=== PATIENT | male | born 1960 | race Caucasian/White ===

== ENCOUNTER 2021-06-02 08:59 | Inpatient (IN) ==
[2021-05-28 15:45] LABS: Basophils # (Auto) 0.05 K/mcL (0.00-0.30); Eosinophils # (Auto) 0 K/mcL (0.00-0.70); Eosinophils % (Auto) 0 % (0.0-7.0); Hematocrit 40.4 % (40.1-51.0); Hemoglobin 11.2 g/dL (13.7-17.5); Lymphocytes # (Auto) 0.75 K/mcL (1.50-4.80); Lymphocytes % (Auto) 15.6 % (15.5-49.0); Mean Cell Volume 81.5 fL (80.0-100.0); Mean Corpuscular HGB Conc 27.7 g/dL (31.0-36.0); Mean Platelet Volume 9.6 fL (7.4-10.4); Monocytes # (Auto) 0.61 K/mcL (0.10-0.90); Monocytes % (Auto) 12.7 % (1.0-12.0); Neutrophils % (Auto) 70.7 % (38.0-78.0); Platelet Count 189 K/mcL (140-440); RBC 4.96 M/mcL (4.63-6.08); WBC 4.8 K/mcL (4.5-11.0)
[2021-05-28 15:58] LABS: Blood Urea Nitrogen 6 mg/dL (8-23); Calcium 9.3 mg/dL (8.6-10.4); Carbon Dioxide 22 mmol/L (22-30); Chloride 103 mmol/L (96-108); Glomerular Filtration Rate 96; Glucose 97 mg/dL (70-105)
--- NOTE | 2021-05-29 09:58 | EKG ---
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 Measurements Intervals [place] Rate: 78 P: 68 WV: 171 QRS: 13 QRSD: 88 T: 24 QT: 367 QTc: 419 Interpretive Statements Sinus rhythm Electronically Signed On 05-29-2021 9:58:06 PST by Santos Duenas M.D. /store/[email or web address]/[id number]
[~2021-06-02 08:59] MED LIST: ceFAZolin 2 GM in DEXTROSE 5% IN WATER 50 ML IV SCH
[2021-06-02] MEDS ORDERED: IPRATROPIUM/ALBUTEROL 3 ML AMPUL.NEB NEB PRN ×2 (09:00→11:09)
[2021-06-02] MEDS ORDERED: SCOPOLAMINE 1 PATCH PATCH TOPICAL PRN (09:00)
[2021-06-02] MEDS ORDERED: SUGAMMADEX SODIUM 200 MG/2 ML VIAL IV ONE (10:19)
[2021-06-02] MEDS ORDERED: DEXAMETHASONE 10 MG/ML VIAL ONE (10:19)
[2021-06-02] MEDS ORDERED: PROPOFOL 200 MG/20 ML VIAL IV ONE (10:19)
[2021-06-02] MEDS ORDERED: LIDOCAINE HCL/PF 100 MG/5 ML SYRINGE IV ONE (10:19)
[2021-06-02] MEDS ORDERED: ROPIVACAINE HCL/PF 20 ML VIAL IJ ONE (10:19)
[2021-06-02] MEDS ORDERED: MAGNESIUM SULFATE 2 GM/50 ML BAG IV ONE (10:19)
[2021-06-02] MEDS ORDERED: ONDANSETRON 4 MG/2 ML VIAL ONE (10:19)
[2021-06-02] MEDS ORDERED: HYDROmorphone 1 MG/ML SYRINGE ONE (10:19)
[2021-06-02] MEDS ORDERED: ROCURONIUM 10 MG/ML ML IV ONE (10:19)
[2021-06-02] MEDS ORDERED: KETAMINE 50 MG/ML Syringe (ANEST) IV ONE (10:19)
[2021-06-02] MEDS ORDERED: KETOROLAC 30 MG/ML VIAL IV PRN (11:09)
[2021-06-02] MEDS ORDERED: ACETAMINOPHEN 1,000 MG/100 ML BAG IV ONE (11:09)
[2021-06-02] MEDS ORDERED: MEPERIDINE 25 MG/ML VIAL IV PRN (11:09)
[2021-06-02] MEDS ORDERED: PROMETHAZINE 25 MG/ML VIAL IV PRN (11:09)
[2021-06-02] MEDS ORDERED: NALOXONE HCL 0.4 MG/ML VIAL IV PRN (11:09)
[2021-06-02] MEDS ORDERED: METHOCARBAMOL 1,000 MG/10 ML VIAL IV PRN (11:09)
[2021-06-02] MEDS ORDERED: fentaNYL 100 MCG/2 ML VIAL IV PRN (11:09)
[2021-06-02] MEDS ORDERED: ONDANSETRON 4 MG/2 ML VIAL IV PRN ×2 (11:09→11:29)
[2021-06-02] MEDS ORDERED: diphenhydrAMINE 50 MG/ML VIAL IV PRN (11:09)
[2021-06-02] MEDS ORDERED: LACTATED RINGERS 250 ML IV PRN (11:09)
[2021-06-02] MEDS ORDERED: LACTATED RINGERS 1,000 ML IV SCH (11:15)
[2021-06-02] MEDS ORDERED: HYDROmorphone 1 MG/ML SYRINGE IV PRN (11:29)
--- NOTE | 2021-06-02 11:29 | Operative Note ---
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 The patient was taken main operating and placed supine on the operative table. General anesthesia was induced over endotracheal tube. Patient's prepped and draped in standard sterile fashion. Surgical timeout was taken to verify patient and procedure being performed. Both a NG tube and a Lassiter catheter were placed prior to prep. A upper midline incision was made carried down through skin and subcutaneous tissue. The fascia was opened and the abdominal cavity was entered under direct vision. Abdominal expiration was undertaken and a greater curve tumor was identified. The lesser sac was entered and the omentum was removed from the greater curve of the stomach with LigaSure device. Once adequate margins were opened around the mass and both anterior and posterior area of the stomach was identified. The NG tube was palpated in the stomach and the tumor was removed using HOWARD staple loads to fully excise the tumor. It was then passed off the field for surgical pathology. The staple line was inspected for hemostasis. The NG tube was passed the area of resection into the distal stomach, the stomach was not narrowed and there was a good lumen throughout. The staple line was then oversewn with interrupted 3-0 Vicryl sutures it was once again inspected and found To be Hemostatic. The NG tube was once again in the stomach with with adequate gastric lumen. The rest of the abdominal cavity was inspected, the bowels were returned to their anatomical position. The midline fascial defect was closed with a running looped PDS suture and subcutaneous tissue was closed with a running 4 Monocryl suture. Skin glue dressings were applied. Patient was then awakened from anesthesia transported postanesthesia care unit awake alert in good condition.
[2021-06-02] MEDS: 0.9 % SODIUM CHLORIDE 10 ML SYRINGE IV SCH ×2 (13:06→21:55)
[2021-06-02] MEDS: LACTATED RINGERS 1,000 ML IV SCH ×2 (13:06→21:26)
[2021-06-03] MEDS: 0.9 % SODIUM CHLORIDE 10 ML SYRINGE IV SCH ×3 (05:12→22:20)
[2021-06-03] MEDS: LACTATED RINGERS 1,000 ML IV SCH ×2 (08:25→18:46)
--- NOTE | 2021-06-03 12:44 | General Surgery Progress Note ---
SUBJECTIVE Subjective Patient information: Note initiated : 06/03/21 at 12:43 pm Service Date, if different from initiated Date: [] Patient: Long Long 60 y/o M admitted on 06/02/21 for Laparoscopic Partial Gastrectomy. Chief Complaint: [] Principal diagnosis: Status post partial gastrectomy Interval history: Postop day #1 status post open partial gastrectomy. Patient is doing well with minimal complaints. Constitutional Vitals: Vital Signs Temp Pulse Resp BP Pulse Ox 98.8 F 89 18 170/82 100 06/03/21 08:00 06/03/21 08:00 06/03/21 08:00 06/03/21 08:00 06/03/21 08:00 Period Temp Pulse Resp BP Sys/Dixon Pulse Ox Last 24 Hr 96.8 F-99.1 F 75-89 16-18 151-177/79-93 99-100 Intake and Output 06/02/21 06/03/21 06/03/21 21:59 05:59 13:59 Intake Total 100 0 1000 Output Total 900 850 Balance -800 -850 1000 Weight 218 lb 12.8 oz Intake & Output: Intake & Output 06/02/21 06/03/21 06/03/21 21:59 05:59 13:59 Intake Total 100 0 1000 Output Total 900 850 Balance -800 -850 1000 Weight 218 lb 12.8 oz Intake: IV 100 1000 Lactated Ringers 1,000 ml @ 100 1000 mls/hr IV .Q10H [facility] Rx#: [id number] Oral 0 Tube Feeding 0 0 Output: Gastric Drainage 100 350 NG/OG 100 350 Void Amount 800 500 Other: Urine Appearance Clear Clear Urine Color Pale Dark Yellow Urine Odor Normal General appearance: cooperative and no acute distress GI/Abdominal GI/Abdominal exam: Present soft; Absent distended or tenderness Additional comments: Incision is clean dry and intact A/P Narrative A/P Narrative: Postop day #1 doing well. DC NG tube, clear liquid diet. Time Spent With Patient Time: Total time spent is greater than 50% in coordination of care (as documented) at patient's floor/unit and/or counseling patient:
[2021-06-03] MEDS ORDERED: ROPIVACAINE HCL/PF 20 ML VIAL IJ ONE (14:00)
[2021-06-03] MEDS ORDERED: MAGNESIUM SULFATE 2 GM/50 ML BAG IV ONE (14:00)
--- NOTE | 2021-06-03 14:23 | Procedure Note ---
Procedures - Nerve Block Nerve Block 2 Date of Procedure: 06/03/21 Procedure: Ultrasound guided Needle Gauge Used: 19 (Catheter in place) Injectate: Ropivicaine 0.5% Volume (ml): 20 (with Mag Sulfate 250mg (6ml) bilat) Side: left, right Nerve blocks: other (Bilateral rectus shealth (subcostal TAP)) Procedure successful: Yes (Good onset) Patient tolerated procedure: well Ultrasound Guided Nerve Procedure: Local anesthetic: Spread visualized Additional comments: POD 1. Patient resting comfortably in bed. Rates pain at 0/10 while at rest. Patient does complain of crampy, spasm like pain in abdomen that is occurring more frequently. Bilat catheter sites inspected. Dressings intact, catheters remain in proper position, no erythema or drainage noted. Bilat catheters re- dosed with 0.5% Ropivicaine with Mag Sulfate 250mg, local anesthetic spread visualized and confirmed with US during injection. Patient notes an almost immediate onset of pain relief. Catheters left in place, will plan on re-dosing POD 2. Will order prn Robaxin for spasm.
[2021-06-03] MEDS ORDERED: METHOCARBAMOL 1,000 MG/10 ML VIAL IV PRN (14:35)
[2021-06-04] MEDS: HYDROcodone/APAP 7.5MG/15ML 15 ML UDC PO PRN ×3 (04:38→21:18)
[2021-06-04] MEDS: 0.9 % SODIUM CHLORIDE 10 ML SYRINGE IV SCH ×3 (04:41→21:18)
[2021-06-04] MEDS: LACTATED RINGERS 1,000 ML IV SCH (05:03)
[2021-06-04 07:06] LABS: Basophils # (Auto) 0.04 K/mcL (0.00-0.30); Basophils % (Auto) 0.6 % (0.0-2.0); Eosinophils # (Auto) 0.46 K/mcL (0.00-0.70); Eosinophils % (Auto) 6.9 % (0.0-7.0); Hematocrit 34.1 % (40.1-51.0); Hemoglobin 9.5 g/dL (13.7-17.5); Lymphocytes # (Auto) 0.86 K/mcL (1.50-4.80); Lymphocytes % (Auto) 12.9 % (15.5-49.0); Mean Cell Volume 81.6 fL (80.0-100.0); Mean Corpuscular HGB Conc 27.9 g/dL (31.0-36.0); Mean Platelet Volume 10.5 fL (7.4-10.4); Monocytes # (Auto) 0.87 K/mcL (0.10-0.90); Neutrophils % (Auto) 66.6 % (38.0-78.0); Platelet Count 137 K/mcL (140-440); RBC 4.18 M/mcL (4.63-6.08); Red Cell Distribution Width 18.9 % (11.5-14.5); WBC 6.7 K/mcL (4.5-11.0)
[2021-06-04 07:35] LABS: Blood Urea Nitrogen 8 mg/dL (8-23); Calcium 8.5 mg/dL (8.6-10.4); Carbon Dioxide 21 mmol/L (22-30); Chloride 99 mmol/L (96-108); Glomerular Filtration Rate 108; Glucose 85 mg/dL (70-105)
--- NOTE | 2021-06-04 08:42 | General Surgery Progress Note ---
SUBJECTIVE Subjective Patient information: Note initiated : 06/04/21 at 8:40 am Service Date, if different from initiated Date: [] Patient: Long Long 60 y/o M admitted on 06/02/21 for Laparoscopic Partial Gastrectomy. Chief Complaint: [] Principal diagnosis: Status post partial gastrectomy Interval history: Postop day #2 status post partial gastrectomy for GI stromal tumor. Patient is tolerating clear liquid diet, no fevers, no chills. He does get abdominal wall spasms, started him on muscle relaxer yesterday without much success. Constitutional Vitals: Vital Signs Temp Pulse Resp BP Pulse Ox 98.3 F 85 20 181/91 98 06/04/21 07:10 06/04/21 07:10 06/04/21 07:10 06/04/21 07:10 06/04/21 07:10 Period Temp Pulse Resp BP Sys/Dixon Pulse Ox Last 24 Hr 98.3 F-99.8 F 68-85 18-20 144-182/83-95 94-100 Intake and Output 06/03/21 06/04/21 06/04/21 21:59 05:59 13:59 Intake Total 1600 2275 Output Total 1525 1050 Balance 75 1225 Weight 217 lb 1.6 oz Intake & Output: Intake & Output 06/03/21 06/04/21 06/04/21 21:59 05:59 13:59 Intake Total 1600 2275 Output Total 1525 1050 Balance 75 1225 Weight 217 lb 1.6 oz Intake: IV 1000 1000 Lactated Ringers 1,000 ml @ 100 1000 1000 mls/hr IV .Q10H [facility] Rx#: [id number] Oral 600 1275 Output: Gastric Drainage 450 NG/OG 450 Void Amount 1075 1050 Other: Urine Appearance Clear Urine Color Tea Colored Urine Odor Normal General appearance: cooperative and no acute distress GI/Abdominal GI/Abdominal exam: Present soft and tenderness; Absent distended or guarding Additional comments: Incision is clean dry and intact A/P Narrative A/P Narrative: Postop day #2 status post partial gastrectomy. Patient is doing as expected other than abdominal wall muscle spasms. We will try on oral medications, advance diet to full liquids. Expect home tomorrow. Time Spent With Patient Time: Total time spent is greater than 50% in coordination of care (as documented) at patient's floor/unit and/or counseling patient:
[2021-06-04] MEDS ORDERED: CYCLOBENZAPRINE 10 MG TABLET PO PRN (08:44)
[2021-06-04] MEDS ORDERED: ROPIVACAINE HCL/PF 20 ML VIAL IJ ONE (11:15)
[2021-06-04] MEDS ORDERED: MAGNESIUM SULFATE 2 GM/50 ML BAG IV ONE (11:15)
--- NOTE | 2021-06-04 12:02 | Procedure Note ---
Procedures - Nerve Block Nerve Block 2 Procedure: Ultrasound guided Needle Gauge Used: 19 (catheters in place bilat) Injectate: Ropivicaine 0.5% Volume (ml): 26 (with mag sulfate 250mg (6ml) bilat) Side: left, right Nerve blocks: other (Rectus Sheath bilat (sub-costal TAP)) Ultrasound Guided Nerve Procedure: Local anesthetic: Spread visualized Complications: none Additional comments: POD 2: Patient resting comfortably in bed. Patient states significant pain relief with catheter injection yesterday. Still experiencing abd muscle spasm. Robaxin was started without much success. Catheters inspected, remain in good position without erythema or drainage. Catheters re-dosed bilat with ropivic jae 0.5% with mag sulfate 250mg. Will re-dose catheters and d/c prior to discharge tomorrow.
[2021-06-05] MEDS: HYDROcodone/APAP 7.5MG/15ML 15 ML UDC PO PRN ×2 (03:40→09:17)
[2021-06-05] MEDS: 0.9 % SODIUM CHLORIDE 10 ML SYRINGE IV SCH (07:42)
--- NOTE | 2021-06-05 09:22 | Discharge Summary ---
Discharge Provider Provider Patient information: Note initiated : 06/05/21 at 9:21 am Service Date, if different from initiated Date: [] Patient: Long Long 60 y/o M admitted on 06/02/21 for Laparoscopic Partial Gastrectomy. Chief Complaint: [] Date of admission: 06/02/21 08:59 Discharge date: 06/05/21 Primary care physician: Cristy Brown COURSE Hospital Course Hospital course: Patient was admitted for a partial gastrectomy secondary to GI stromal tumor. Patient underwent gastrectomy, postoperatively diet was slowly advanced, he is now tolerating a full liquid diet, is ambulatory, is passing flatus and has minimum abdominal pain. Discharge diagnosis: Status post partial gastrectomy Time Spent with Patient Time attestation: Total time spent providing and/or coordinating discharge services: Physical Examination Vital Signs Vital signs: Temp Pulse Resp BP Pulse Ox 97.6 F 72 16 176/92 98 06/05/21 07:23 06/05/21 03:40 06/05/21 07:23 06/05/21 07:23 06/05/21 07:23 Discharge Plan Patient/Caregiver Discharge Instructions Activity: increase activity as tolerated Diet: Full Liquid Activity Restrictions/Additional Instructions: Gradually increase activity as tolerated. May shower as normal. Slowly advance from a full liquid diet to regular diet over the next 2 weeks. Follow-up with me in 1 week. Prescriptions: New cyclobenzaprine 10 mg Tablet 5 mg PO TIDP PRN (Reason: Muscle Spasm) Qty: 20 0RF hydrocodone-acetaminophen 7.5-325 mg/15 mL Solution 10 ml PO Q4HP PRN (Reason: Pain) 5 Days Qty: 120 0RF ibuprofen 800 mg tablet 800 mg PO TID PRN (Reason: pain) Qty: 60 0RF Discontinued ferrous sulfate 325 mg (65 mg iron) Tablet 325 mg PO QDAY 0RF omeprazole 20 mg Capsule,Delayed Release(Dr/Ec) 20 mg PO QDAY 0RF Follow Up Plan Follow up with: Bowen Caicedo MD [Physician] - 06/17/21 8:45 am Patient Disposition: Home, Self-Care Discharge Orders: Discharge Order (Routine); Ordered 06/05/21 Ordered By: Bowen Caicedo Pending Pending Pending: Resuscitation Status Resuscitate (Full Code) Diet Full Liquid Diet Start Malorie Jun 04 842 Hydrocodone Bitart/Acetaminophen (Hydrocodone/Apap 7.5mg/15ml 15 Ml Udc) 10 ml PO Q4HP PRN PRN Reason: Pain Last Admin: 06/05/21 09:17 Dose: 10 ml Documented by: Admin: 06/05/21 03:40 Dose: 10 ml Documented by: Admin: 06/04/21 21:18 Dose: 10 ml Documented by: Admin: 06/04/21 10:51 Dose: 10 ml Documented by: Admin: 06/04/21 04:38 Dose: 10 ml Documented by: BARBARA Hydromorphone HCl (Hydromorphone 1 Mg/Ml Syringe) 0 mg IV Q2HP PRN; Protocol PRN Reason: Per Pain Protocol Last Admin: 06/03/21 22:57 Dose: 1 mg Documented by: BARBARA Sodium Chloride (0.9 % Sodium Chloride 10 Ml Syringe) 10 ml IV Q8 [facility] Last Admin: 06/05/21 07:42 Dose: 10 ml Documented by: Admin: 06/04/21 21:18 Dose: 10 ml Documented by: Admin: 06/04/21 14:42 Dose: Not Given Documented by: Admin: 06/04/21 04:41 Dose: Not Given Documented by: Admin: 06/03/21 22:20 Dose: Not Given Documented by: Admin: 06/03/21 13:39 Dose: Not Given Documented by: Admin: 06/03/21 05:12 Dose: Not Given Documented by: Admin: 06/02/21 21:55 Dose: Not Given Documented by: Admin: 06/02/21 13:06 Dose: Not Given Documented by: MICHEL Shift Summary 06/05/21 04:27 Shift Summary by Terrell Hollingsworth Pt rested late in the shift - did not sleep until after 0200. ABD pain well controlled w/ PO Lortab Elxr given x2 - last dose @ 0340. No N/V. No BM. Pt voiding QS per urinal. He was up AMB in [place] (I) early in the shift - gait stable w/o device. Midline ABD incision well approx w/ Dermabond & gauze pad dressings - CDI. 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 Saline lock to his LT F/A - flushed & patent. VS - B/P elevated all shift - last was 177/ - all else WNL on R.A.. Pt is A&O x4, calm, pleasant, & cooperative. Initialized on 06/05/21 04:27 - END OF NOTE
[2021-06-05] MEDS ORDERED: ROPIVACAINE HCL/PF 20 ML VIAL IJ ONE (10:35)
[2021-06-05] MEDS ORDERED: MAGNESIUM SULFATE 2 GM/50 ML BAG IV ONE (10:35)
--- NOTE | 2021-06-05 11:10 | Procedure Note ---
Procedures - Nerve Block Nerve Block 2 Procedure: Ultrasound guided Needle Gauge Used: 19 (catheter in place bilat) Injectate: Ropivicaine 0.5% Volume (ml): 26 (with mag sulfate 250mg (6cc) bilat) Side: left, right Nerve blocks: other (Bilat Rectus Sheath (sub-costal TAP)) Patient tolerated procedure: well Ultrasound Guided Nerve Procedure: Local anesthetic: Spread visualized Additional comments: POD 3: Patient continues do well, will discharge home today. Overall happy with pain control, reports significant relief with catheter re-dosing. Catheters remain in good position, re-dosed bilat with 20cc ropivicaine 0.5%/mag sulfate 250mg. Catheters d/c'd in preparation for discharge today. Catheters intact, sites free from erythema or drainage.
--- NOTE | 2021-06-05 12:49 | Surgical Pathology Report ---
Histology Microscopic Diagnosis Specimen A- STOMACH, PARTIAL GASTRECTOMY: --- GASTROINTESTINAL STROMAL TUMOR (GIST), SPINDLE CELL TYPE, WITH THE FOLLOWING FEATURES: -- TUMOR FOCALITY: UNIFOCAL. -- TUMOR SIZE: 4.8 cm IN GREATEST DIMENSION. -- HISTOLOGIC GRADE: LOW GRADE. -- MITOTIC RATE: 1/5 mm2. -- NECROSIS: NOT IDENTIFIED. -- RISK ASSESSMENT: VERY LOW RISK OF PROGRESSIVE DISEASE (1.9%). -- MARGINS: UNINVOLVED BY GIST; CLOSEST (MUCOSAL) MARGIN IS 0.5 cm FROM GIST. -- PATHOLOGIC STAGE: pT2 NX. -- SEE SUMMARY CANCER DATA FOR COMPLETE DETAILS. SUMMARY CANCER DATA Procedure: Partial gastrectomy. Tumor Site: Stomach. Tumor Focality: Unifocal. Tumor Size: 4.8 cm in greatest dimension. Histologic Type: Gastrointestinal stromal tumor, spindle cell type. Histologic Grade: Low grade. Mitotic Rate: 1/5 mm2. Necrosis: Not identified. Risk Assessment: Very low risk of progressive disease (1.9%). Margins: Uninvolved by GIST; closest (mucosal) margin is 0.5 cm from GIST. Lymph Nodes: not applicable (no regional lymph node submitted or found). Pathologic Stage: pT2 Nx. Procedural Impression Gastrointestinal stromal tumor. Gross Description Received in formalin designated as gastrointestinal stromal tumor resection, is a roughly triangular 11.5 x 6.5 x 5.5 cm pouch of stomach. The pouch is closed by a 13.5 cm long staple line. The external surface has a 4.8 x 4.8 x 3.5 cm palpable nodule extending from the surface. The nodule is greene-white and variegated. The external surface overlying the nodule is inked black. The staple margin is removed and the underlying parenchyma is inked blue. The specimen is open to reveal the previously described nodule. The mucosal surface overlying the nodule has the usual unremarkable cobble stone appearance of gastric mucosa. The the nodule is 0.5 cm from the nearest blue inked mucosal margin. The nodule is sectioned and has a variegated maroon-red to greene-white cut surface. The nodule appears circumscribed, but not definitely encapsulated. The center is softened, but not necrotic. The gastric wall away from the tumor is up to 0.5 cm thick. Community Engagement Specialist sections are submitted as follows: A1 - tumor to nearest mucosal margin; A2-A5 - tumor and adjacent serosal surface; A6 - tumor and overlying mucosa; A7 - unremarkable gastric mucosa. (DMT:jim) Electronically Signed Pito Milton MD, FCAP Electronically Signed 06/05/2021 12:48
--- OUTSIDE RECORDS SUMMARY | 2021-06-15 16:04 | External Medical Summary | Continuity of Care Document ---
:1960 Author Organization [facility] Address [address] [place] [phone] Phone Care Team Providers Name Role Phone Jorge Luis Potts MD Unavailable Unavailable Procedures Procedure Date Client - Urine Collection Advance Directives Directive Yes / No Effective Date File Name No Information Encounters Encounter Practice Location Reason(s) Diagnoses Date Provider Provide rs Description For Visit Copied on Encounter [facility] Same Day Routine [facility] - [facility] -2014 Jorge Luis. 1401 Provid er: Physician [place] Exam [address] [place] [address], [id number] [place] , [phone], [address] [place], [place], [id number] [facility] [id number], [facility] [id number], tel:+[phone] [facility] [phone]. tel:[phone] tel:[phone] Family History Family Member Type Diagnosis Age At Onset No Information Payers Payer name Insurance type Covered democrat ID Authorization(s ) No Information Social History Type Description Quantity Date Captured Comments Sex Male Smoking Status No Information Chief Complaint And Reason For Visit No Information Plan Of Treatment Date Type Action Status No Information History Of Present Illness Encounter Date Complaint History Of Present I llness No Information Instructions Date Instruction Additional Informati on No Information Assessments Type Assessment Date No Information
--- OUTSIDE RECORDS SUMMARY | 2021-06-15 16:05 | External Medical Summary | Encounter Summary ---
:1960 Author Reason for Visit Video Visit - Medical (Virtual) Assessment and Plan Assessment Note Thanks for participating in our virtual visit today! You will find a summary of the visit on our portal. Thank you for choosing [facility] for your he althcare needs! You have established your care with me today. Please call our clinic any time with questions or concerns and we would be happy to assist 1. 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 Gary BROUSSARD. Hasn't heard from s [facility] office when it's supposed to be. We'll reach out to Gary BROUSSARD and find out how to help facilitate. He needs lab work for surgery. He can come in anytime for this. He'll bring the order sheet Follow up with any concerns 2. Ready for enhanced communication Video Visit. New billing guidance effec tive 11/22/19. Visit duration in minutes 15min Discussion Note: None recorded.Patient educational handouts: No information available. Plan of Care Reminders Provider Appointments None recorded. Lab None recorded. Referral None recorded. Procedures None recorded. Surgeries None recorded. Imaging None recorded. Medications Name Start Date cyclobenzaprine 10 mg tablet Take 0.5 tablets 3 times a day by oral route as neede d for 12 days. hydrocodone 7.5 mg-acetaminophen 325 mg/15 mL oral eddi ution Take 10 mL every 4 hours by oral route as needed for 5 days. ibuprofen 800 mg tablet Take 1 tablet 3 times a day by oral route as needed f or 30 days. lisinopril 20 mg tablet Take 1 tablet every day by oral route. Notes: not on any meds at the moment. 06/11/21 HKA 04/06/2021 Meds verified with patient / J G meds verified with pt 02/18/21 HKA Medications Administered None recorded. Vitals Height Weight BMI 5 ft 10 in 206 lbs 29.6 kg/m2 Results Lab Results None recorded. Allergies Code Code System Name Reaction Severity Onset NKDA Problems Name Status Onset Date Source Anemia Active 12/25/2020 Problem Drinker Active 12/25/2020 Gastrointestinal Stromal Tumor Active 03/06/2021 Procedures Date Name Performed by 06/02/2021 Subtotal Gastrectomy Information not milagros ilable Notes: 2/2 GI stromal tumor 03/06/2021 Operative Esophagogastroduodenoscopy Inf ormation not available Notes: ulcerated GIST 03/06/2021 Colonoscopy Information not avai lable Notes: multiple adenomatous colon poly ps, repeat in 3 years Vaccine List Vaccine Type COVID-19, mRNA, LNP-S, PF, 100 mcg/0.5 m L dose (Moderna) 02/18/2021.5 mL Social History Tobacco Smoking Status Never Smoker What type of diet are you REGULAR following? Do you have difficulty walking N or climbing stairs? Are you currently employed? Y Are you able to care for Y yourself? How much tobacco do you chew? none What is the highest level of More than high school school that you have finished? In the past year have you or N any of your family members been unable to access INTERNET when it was really needed? In the past year, have you No been afraid of your partner or ex-partner? In the past year have you or No any of your family members been unable to get MEDICINE or HEALTH CARE when it was really needed? In the past year have you or No any of your family members been unable to get FLUORESCENT LIGHTING MODEL MAKER when it was really needed? Has lack of transportation No kept you from medical appointments, meetings, work, or from getting things needed for daily living? What is your relationship status? Are you currently in school? N What is your level of alcohol Heavy Notes: 1 08/12/20 pt reports consumption? that he has "cut black n quite a bit, still drinkin g daily, approximates 12 beers per week". HKA drinks daily, 4 16 oz beers per day on average, occa sional shot at the bar Live alone or with others? alone Are you deaf or do you have N serious difficulty hearing? Do you use your seat belt or Y car seat routinely? Are you passively exposed to N smoke? Do you or have you ever used N any other forms of tobacco or nicotine? Smoke alarm in home Y Seat belts used routinely Y Are there any guns present in N your home? Do you have difficulty N dressing or bathing? In the past year have you or No any of your family members been unable to get FOOD when it was really needed? What is the highest grade or [id number] level of school you have completed or the highest degree you have received? How many children do you have? 3 Has tobacco cessation N counseling been provided? Are you blind or do you have Y difficulty seeing? In the past year, have you No spent more than 2 nights in a row in a long term, skilled nursing, shelter center, or juvenile correctional facility? Do you have difficulty doing N errands alone? Do you use sunscreen Y routinely? What was the date of your most 12/25/2020 recent tobacco screening? Do you have an advanced N directive? Do you or have you ever used Never used electronic e-cigarettes or vape? cigarettes How many years have you 40 consumed alcohol? Do you use any illicit or N recreational drugs? How many years have you smoked 0 tobacco? What is your exercise level? None In the past year have you or No any of your family members been unable to get OTHER NECESSITIES when it was really needed? Do you feel physically and Yes emotionally safe where you currently live? When was your last dental Notes: Refer ral will be cleaning? sent. [place] In the past year have you or No any of your family members been unable to get a PHONE when it was really needed? Cannabis Use? N In the past year have you or N any of your family members been unable to access healthcare because of lack of a computer, tablet, smartphone, etc when it was really needed? How stressed are you? Not at all Do you or have you ever used Never used smokeless tobacco smokeless tobacco? On what date was tobacco 12/25/2020 cessation counseling provided? PRAPARE Screening Completed 12/25/2020 on: Illicit drugs N Are you sexually active? Y Do you use protection during Always sex? Do you have difficulty N concentrating, remembering or making decisions? What is your level of caffeine Occasional consumption? Are you worried about losing No your housing? Hookah use? N How often do you see or talk Less than once a week to people that you care about and feel close to? (Ex: talking to friends on the phone, visiting friends/family, going to protestant or club meetings) What is your current work I choose not to answer situation? In the past year have you or No any of your family members been unable to get UTILITIES when it was really needed? 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 Does the patient have social N needs that need to be addressed? Family History Relation Problem Onset Age of Age Notes Father Aneurysm of heart (No Information) 63 (No No gabriel) Mother Malignant neoplastic disease (No Information) 83 (No Notes) Functional Status Are you blind or do you have difficulty seeing?? Yes Past Encounters 04/06/2021 Gastrointestinal Stromal Tumor of [place] h; Ready for Enhanced Communication Jessica Sheffield PA-C: [address] [facility] [address], Ph. 03/19/2021 Administration of SARS-CoV-2 Antigen Vac [facility] BUDDY Cabrla Che: [address] [facility], [place] [address], Ph. History of Present Illness Note: You should have been asked to sign and submit our Assignment of Benefits and Notice of Privacy Practices before you joined your visit, do you have any questions or concerns before we begin? {{|No*|Yes}}

A telehealth consent is part of the Assignment of Benefits form you were asked to sign. The telehealth consent will appear on your care plan. Would you like me to read it before webegin? {{No*|Yes}}

You may receive healthcare through telephone or video connection, referred to as Telehealth. While telehealth has several benefits including increased access to healthcare, there are risks. You have the right to refuse treatment through telehealth at any time. Risks related to malfunctioning equipment or poor phone or internet connection may disrupt or delay care. In-person visits may be required. In very rare instances, security protocols could fail causing a breach of privacy or personal medical information. Please refer to the [facility] Notice of Privacy Practices for more information about how we secure private data.

If our connection is lost, I will contact you at the phone number listed in your chart. It is your responsibility to ensure you have provided the best contact number so you can be reached if we are disconnected.

Patient location: {{ |Home*|Other}} in {{|[place]*|[place]|other state}}.
Provider location: {{ |Clinic*|Home|Other}} in {{|[place]*|other state}}.

Medical Staff in Room {{ |Provider* |Provider and MA|Provider and other staff member}}<div>HPI: Was newly diagnosed with GIST. Surgery is supposed to be at [facility]</div><div>He doesn't even know tumor is there. Sees Dr. Gary BROUSSARD. Had severe anemia- had EGD and colonoscopy. </div><div>No other dx/no meds</div ><div>No med history</div>Review of Systems: ROS as noted in the HPI Review of Systems None recorded. Physical Exam Notes: The physical exam was limite d to what could be observed over the video monitor. Any vital signs wer e reported by the patient via home devices.
Constitutional: {{Does not appear to be in acute distress.*|Appears moderatel y distressed due to pain.|Appears moderately distressed due to stress/anx iety.}}
Neurological: {{Alert and oriented to person, place, and time.*|Al ert and oriented to person, place and time, but some mild confusion.}}
Sk in: {{Visible skin is warm and dry. No rash noted.*}}
Psychiatric: {{ Normal mood and affect. Behavior, judgement and thought content are normal.* |Anxious mood and affect. Behavior, judgement and thought content are normal.| Depressed mood and affect. Behavior, judgement and thought content are normal.| Depressed and anxious mood and affect. Behavior, judgement and thought conten t are normal.}}
--- OUTSIDE RECORDS SUMMARY | 2021-06-15 16:05 | External Medical Summary | Encounter Summary ---
:1960 Author Reason for Visit Moderna [id number] Vaccination Assessment and Plan 1. Administration of SARS-CoV-2 antigen vaccine The Moderna Covid 19 vaccination requir es two (2) injections 28 days (4 weeks) apart. Please ensure you return in 28 da ys (4 weeks) for the second injection. [place] Phase criteria: The Covid-19 vaccine is now available to all people 16 and older who live or work in [facility]. Note: Moderna vaccine approved for ages 18 and above. Screening form completed: Yes Moderna pr ccination screening questionnaire completed and reviewed by clinical staff. Appropri ate clinical guidance provided based on patient responses. Common side effects: fatigue, muscle soreness and aches, joint pain, headache, and pain, redness or swe lling at the injection site 3rd dose criteria guidance. May be administered [address] the second dose. This additional dose of an mRNA vaccine is not recommended for rolando buenrostro who received the Delroy and Delroy vaccine. At this time, we will only be a dministering third doses to those who received Moderna previously. Patient att ests that they satisfy at least one of the following criteria: Yes Been receiving active cancer treatment for tumors or cancers of the blood Received an organ transplant and are taking medicine to suppress the immune system Received a stem cell transplant within the last 2 years or are taking medicine to suppress the i mmune system Moderate or severe primary immunodeficiency (such as DiGeorge syndr ome, Wiskott-Nickolas syndrome) • Advanced or untreated HIV infection Ac tive treatment with high-dose corticosteroids or other drugs that may suppress your im mune response DMARDs and Biologics guidance Moderna COVID-19 Vaccine (PF) 100 mcg /0.5 mL intramuscular susp. (EUA) Discussion Note: None recorded.Patient educational handouts: No [...] 02/18/21 HKA Medications Administered None recorded. Vitals None recorded. Results Lab Results None recorded. Allergies Code Code System Name Reaction Severity Onset NKDA Problems Name Status Onset Date Source Anemia Active 12/25/2020 Problem Drinker Active 12/25/2020 Gastrointestinal Stromal Tumor Active 03/06/2021 Procedures Date Name Performed by 06/02/2021 Subtotal Gastrectomy Information not mliagros ilable Notes: 2/2 GI stromal tumor 03/06/2021 [...] your family members been unable to get CELL PLASTERER when it was really needed? Has lack [...] oz beers per day on average, occa sipiotr shot at the bar Live alone or [...] needed? What is the highest grade or [id number] level of school you have completed or the highest degree you have received? How many children do you have? 3 Has tobacco cessation N counseling been provided? Are you blind or do you have Y difficulty seeing? In the past year, have you No spent more than 2 nights in a row in a care home, halfway, care home center, or juvenile correctional facility? Do you [...] on the phone, visiting friends/family, going to mosque or club meetings) What is your current work I choose not to answer situation? In the past year have you or No any of your family members been unable to get UTILITIES when it was really needed? 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 Yes Past Encounters 03/19/2021 Administration of SARS-CoV-2 Antigen Vac cine BUDDY Cabral Che: [address] [place] [address], [place] [address], Ph. 02/18/2021 Anemia; Problem Drinker; Screening for D isorder; Active or Passive Immunization Cristy Brown MD: [address] [facility] [place] [address], Ph. History of Present Illness None recorded. Review of Systems None recorded. Physical Exam None recorded.
--- OUTSIDE RECORDS SUMMARY | 2021-06-15 16:05 | External Medical Summary ---
:1960 Author Care Team Providers Name Role Phone Non Established Primary Care Provider Unavailable Allergies Code Code System Name Reaction Severity Status Onset NKDA Medications Name Status Start Date Stop Date cyclobenzaprine 10 mg tablet Active Not available Take 0.5 tablets 3 times a day by oral route as needed for 12 d ays. FeroSul 325 mg (65 mg iron) tablet Completed 06/11/2021 TAKE ONE TABLET BY MOUTH ONCE EVERY OTHER DAY WITH ORANGE JUICE hydrocodone 7.5 mg-acetaminophen 325 mg/15 mL oral solution Acti ve Not available Take 10 mL every 4 hours by oral route as needed for 5 days. ibuprofen 800 mg tablet Active Not avai lable Take 1 tablet 3 times a day by oral route as needed for 30 days . lisinopril 20 mg tablet Active Not avai lable Take 1 tablet every day by oral route. omeprazole 20 mg capsule,delayed release Completed 06/11/2021 Notes: not on any meds at the moment. 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) - See Note Below For Original Data Source: [address], [place] Plasma Blood Urea 8 mg/dL 8-23 Final [place] Nitrogen mg/dL [facility]) - See Note Below For Original Data Source: [address] [place] [address], [place] Plasma Low Creatinine 0.6 0.7-1.2 Final [place] mg/dL mg/dL [facility]) - See Note Below For Original Data Source: [address] [place] [address], [place] Plasma Sodium 135 133-145 Final [place] mmol/L mmol/L [facility]) - See Note Below For Original Data Source: [address] [place] [address], [place] Plasma Potassium 3.5 3.3-5.1 Final [place] mmol/L mmol/L [facility] ([facility]) - See Note Below For Original Data Source: [address] [place] [address], [place] Plasma Chloride 99 96-108 Final [place] mmol/L mmol/L [facility]) - See Note Below For Original Data Source: [address] [place] [address], [place] Plasma Low Carbon Dioxide 21 22-30 Final [place] mmol/L mmol/L [facility]) - See Note Below For Original Data Source: [address] [place] [address], [place] Plasma Anion Gap 15.0 8.0-16.0 Final [place] [facility]) - See Note Below For Original Data Source: [address] [place] [address], [place] Plasma Low Calcium 8.5 8.6-10.4 Final [place] mg/dL mg/dL [facility]) - See Note Below For Original Data Source: [address] [place] [address], [place] Plasma Glomerular 108 Final [place] Filtration Rate H e[facility] ([facility]) - See Note Below For Original Data Source: [address] [place] [address], [place] 06/04/2021 CBC/auto Whole Wbc 6.7 4.5-11.0 Final Id reji Diff/plt Blood K/mcL K/mcL [facility]) - See Note Below For Original Data Source: [address] [place] [address], [place] Whole Low Rbc 4.18 4.63-6.0 Final [place] Blood M/mcL 8 M/mcL [facility]) - See Note Below For Original Data Source: [address] [place] [address], [place] Whole Low Hgb 9.5 g/dL 13.7-17. Final [place] Blood 5 g/dL [facility] ([facility]) - See Note Below For Original Data Source: [address] [place] [address], [place] Whole Low Hct 34.1 % 40.1-51. Final [place] Blood 0 % [facility]) - See Note Below For Original Data Source: [address] [place] [address], [place] Whole Mcv 81.6 fL 80.0-100 Final [place] Blood .0 fL [facility] - See Note Below For Original Data Source: [address] [place] [address] Shadia, [place] Whole Low Mch 22.7 pg 26.0-34. Final [place] Blood 0 pg [facility]) - See Note Below For Original Data Source: [address] [place] [address], [place] Whole Low Mchc 27.9 31.0-36. Final [place] Blood g/dL 0 g/dL [facility] - See Note Below For Original Data Source: [address] [place] [address], [place] Whole High Rdw 18.9 % 11.5-14. Final [place] Blood 5 % [facility] ([facility]) - See Note Below For Original Data Source: [address] [place] [address], [place] Whole Low Plt CT 137 140-440 Final [place] Blood K/mcL K/mcL [facility]) - See Note Below For Original Data Source: [address] [place] [address], [place] Whole High Mpv 10.5 fL 7.4-10.4 Final [place] Blood fL [facility]) - See Note Below For Original Data Source: [address] [place] [address], [place] Whole Neut % 66.6 % 38.0-78. Final [place] Blood 0 % [facility]) - See Note Below For Original Data Source: [address] [place] [address], [place] Whole Low Lymph % 12.9 % 15.5-49. Final [place] Blood 0 % [facility]) - See Note Below For Original Data Source: [address] [place] [address], [place] Whole High [place] % 13.0 % 1.0-12.0 Final [place] Blood % [facility] ([facility]) - See Note Below For Original Data Source: [address] [place] [address], [place] Whole Eos % 6.9 % 0.0-7.0 Final [place] Blood % [facility]) - See Note Below For Original Data Source: [address] [place] [address], [place] Whole Baso % 0.6 % 0.0-2.0 Final [place] Blood % [facility]) - See Note Below For Original Data Source: [address] [place] [address], [place] Whole Absolute 4.44 1.80-8.0 Final [place] Blood Neutrophil Count K/mcL 0 K/mcL [facility]) - See Note Below For Original Data Source: [address] [place] [address], [place] Whole Low Lymph # 0.86 1.50-4.8 Final [place] Blood K/mcL 0 K/mcL [facility]) - See Note Below For Original Data Source: [address] [place] [address], [place] Whole [place] # 0.87 0.10-0.9 Final [place] Blood K/mcL 0 K/mcL [facility]) - See Note Below For Original Data Source: [address] [place] [address], [place] Whole Eos # 0.46 0.00-0.7 Final [place] Blood K/mcL 0 K/mcL [facility]) - See Note Below For Original Data Source: [address] [place] [address], [place] Whole Baso # 0.04 0.00-0.3 Final [place] Blood K/mcL 0 K/mcL [facility]) - See Note Below For Original Data Source: [address] [place] [address], [place] 06/02/2021 Histology Stomach No observation [place] Specimen recorded. [facility] ([facility]) - See Note Below For Original Data Source: [address] [place] [address], [place] 05/28/2021 Basic Plasma Glucose,random 97 mg/dL 70-105 Fi nal [place] Metabolic mg/dL Health Panel [facility] ([facility]) - See Note Below For Original Data Source: [address] [place] [address], [place] Plasma Low Blood Urea 6 mg/dL 8-23 Final [place] Nitrogen mg/dL [facility]) - See Note Below For Original Data Source: [address] [place] [address], [place] Plasma Creatinine 0.8 0.7-1.2 Final [place] mg/dL mg/dL [facility]) - See Note Below For Original Data Source: [address] [place] [address], [place] Plasma Sodium 140 133-145 Final [place] mmol/L mmol/L [facility]) - See Note Below For Original Data Source: [address] [place] [address], [place] Plasma Potassium 4.2 3.3-5.1 Final [place] mmol/L mmol/L [facility]) - See Note Below For Original Data Source: [address] [place] [address], [place] Plasma Chloride 103 96-108 Final [place] mmol/L mmol/L [facility]) - See Note Below For Original Data Source: [address] [place] [address], [place] Plasma Carbon Dioxide 22 22-30 Final [place] mmol/L mmol/L [facility]) - See Note Below For Original Data Source: [address] [place] [address], [place] Plasma Anion Gap 15.0 8.0-16.0 Final [place] [facility]) - See Note Below For Original Data Source: [address] [place] [address], [place] Plasma Calcium 9.3 8.6-10.4 Final [place] mg/dL mg/dL [facility]) - See Note Below For Original Data Source: [address] [place] [address], [place] Plasma Glomerular 96 Final [place] Filtration Rate [facility]) - See Note Below For Original Data Source: [address] [place] [address], [place] 05/28/2021 CBC/auto Whole Wbc 4.8 4.5-11.0 Final [place] reji Diff/plt Blood K/mcL K/mcL [facility]) - See Note Below For Original Data Source: [address] [place] [address], [place] Whole Rbc 4.96 4.63-6.0 Final [place] Blood M/mcL 8 M/mcL [facility]) - See Note Below For Original Data Source: [address] [place] [address], [place] Whole Low Hgb 11.2 13.7-17. Final [place] Blood g/dL 5 g/dL [facility]) - See Note Below For Original Data Source: [address] [place] [address], [place] Whole Hct 40.4 % 40.1-51. Final [place] Blood 0 % [facility]) - See Note Below For Original Data Source: [address] [place] [address], [place] Whole Mcv 81.5 fL 80.0-100 Final [place] Blood .0 fL [facility]) - See Note Below For Original Data Source: [address] [place] [address], [place] Whole Low Mch 22.6 pg 26.0-34. Final [place] Blood 0 pg [facility]) - See Note Below For Original Data Source: [address] [place] [address], [place] Whole Low Mchc 27.7 31.0-36. Final [place] Blood g/dL 0 g/dL [facility] - See Note Below For Original Data Source: [address] [place] [address], [place] Whole High Rdw 20.0 % 11.5-14. Final [place] Blood 5 % [facility]) - See Note Below For Original Data Source: [address] [place] [address], [place] Whole Plt CT 189 140-440 Final [place] Blood K/mcL K/mcL [facility]) - See Note Below For Original Data Source: [address] [place] [address], [place] Whole Mpv 9.6 fL 7.4-10.4 Final [place] Blood fL [facility]) - See Note Below For Original Data Source: [address] [place] [address], [place] Whole Neut % 70.7 % 38.0-78. Final [place] Blood 0 % [facility]) - See Note Below For Original Data Source: [address] [place] [address], [place] Whole Lymph % 15.6 % 15.5-49. Final [place] Blood 0 % [facility]) - See Note Below For Original Data Source: [address] [place] [address], [place] Whole High [place] % 12.7 % 1.0-12.0 Final [place] Blood % [facility]) - See Note Below For Original Data Source: [address] [place] [address], [place] Whole Eos % 0.0 % 0.0-7.0 Final [place] Blood % [facility]) - See Note Below For Original Data Source: [address] [place] [address], [place] Whole Baso % 1.0 % 0.0-2.0 Final [place] Blood % [facility] ([facility]) - See Note Below For Original Data Source: [address] [place] [address], [place] Whole Absolute 3.40 1.80-8.0 Final [place] Blood Neutrophil Count K/mcL 0 K/mcL [facility] ([facility]) - See Note Below For Original Data Source: [address] [place] [address], [place] Whole Low Lymph # 0.75 1.50-4.8 Final [place] Blood K/mcL 0 K/mcL [facility]) - See Note Below For Original Data Source: [address] [place] [address], [place] Whole [place] # 0.61 0.10-0.9 Final [place] Blood K/mcL 0 K/mcL [facility]) - See Note Below For Original Data Source: [address] [place] [address], [place] Whole Eos # 0.00 0.00-0.7 Final [place] Blood K/mcL 0 K/mcL [facility] - See Note Below For Original Data Source: [address] [place] [address], [place] Whole Baso # 0.05 0.00-0.3 Final [place] Blood K/mcL 0 K/mcL [facility] ([facility]) - See Note Below For Original Data Source: [address] [place] [address], [place] 05/28/2021 Mrsa Screen, Swab Mrsa Pcr negative negative Final [place] PCR [facility] ([facility]) - See Note Below For Original Data Source: [address] [place] [address], [place] 02/18/2021 Iron + TIBC Blood High Iron, Total 340 50-180 Fi nal [facility] + Ferritin, venous mcg/dL mcg/dL Diagn ostic Serum s [facility] Lab: [address] [facility] Blood Norm Iron Binding 405 250-425 Final Qu est venous al Capacity mcg/dL mcg/dL Diagnost ic (calc) (calc) [facility] Lab: [address] [place] [address] Blood High % Saturation 84 % 20-48 % Final Qu est venous (calc) (calc) Diagnostic [facility] Lab: [address] [place] [address] Blood Low Ferritin 17 NG/mL 24-380 Final [facility] venous NG/mL Diagnostic [facility] Lab: [address] [place] [address] 02/18/2021 HIV 1+2 Ab + Blood Norm HIV Ag/Ab, 4TH non-reac non -reac Final [facility] HIV1 P24 Ag, venous al Gen tive tive Diag nostic Quantitative s - Immunoassay, [facility] Serum Lab: [address] [place] [address] 02/18/2021 Celiac Blood Interpretation see note Fi nal [facility] Disease venous Diagnosti c Comprehensiv s - e Panel, [place] Serum Lab: [address] [place] [address] Blood Tissue <1 U/mL Final [facility] venous Transglutaminase Diagnostic Ab, IgA [facility] Lab: [address] [place] [address] Blood Immunoglobulin a 194 70-320 Final [facility] venous mg/dL mg/dL Diagnostic [facility] Lab: [address] [place] [address] 02/18/2021 CMP, Serum Blood High Glucose 104 65-99 Final [facility] or Plasma venous mg/dL mg/dL Diagnos tic [facility] Lab: [address] [place] [address] Blood Norm Urea Nitrogen 10 mg/dL 7-25 Final [facility] venous al (BUN) mg/dL Diagnostic [facility] Lab: [address] [place] [address] Blood Norm Creatinine 0.82 0.70-1.[address] venous al mg/dL 5 mg/dL Diagnosti c [facility] Lab: [address] [place] [address] Blood Norm eGFR Non-afr. 95 > or = Final Qu est venous al Angolan mL/min/1 60 Diagno stic .73m2 mL/min/1 s - .73m2 [place] Lab: [address] [place] [address] Blood Norm eGFR 111 > or = Final Que st venous al Angolan mL/min/1 60 Diagno stic .73m2 mL/min/1 s - .73m2 [place] Lab: [address] [place] [address] Blood BUN/creatinine not 6-22 Final Q uest venous Ratio applicab (calc) Diagnost ic le s (calc) [facility] Lab: [address] [place] [address] Blood Norm Sodium 138 135-146 Final [facility] venous al mmol/L mmol/L Diagnostic [facility] Lab: [address] [place] [address] Blood Norm Potassium 4.8 3.5-5.3 Final [facility] venous al mmol/L mmol/L Diagnostic [facility] Lab: [address] [place] [address] Blood Norm Chloride 103 98-110 Final [facility] venous al mmol/L mmol/L Diagnostic [facility] Lab: [address] [place] [address] Blood Norm Carbon Dioxide 26 20-32 Final Q uest venous al mmol/L mmol/L Diagnostic [facility] Lab: [address] [place] [address] Blood Norm Calcium 9.6 8.6-10.3 Final [facility] venous al mg/dL mg/dL Diagnostic [facility] Lab: [address] [place] [address] Blood Norm Protein, Total 6.4 g/dL 6.1-8.1 Final [facility] venous al g/dL Diagnostic [facility] Lab: [address] [place] [address] Blood Norm Albumin 4.2 g/dL 3.6-5.1 Final [facility] venous al g/dL Diagnostic [facility] Lab: [address] [place] [address] Blood Norm Globulin 2.2 g/dL 1.9-3.7 Final Ques t venous al (calc) g/dL Diagnostic (calc) [facility] Lab: [address] [place] [address] Blood Norm Albumin/globulin 1.9 1.0-2.5 Final [facility] venous al Ratio (calc) (calc) Diagnostic [facility] Lab: [address] [place] [address] Blood Norm Bilirubin, Total 0.5 0.2-1.2 Final [facility] venous al mg/dL mg/dL Diagnostic [facility] Lab: [address] [place] [address] Blood Norm Alkaline 76 U/L 35-144 Final [facility] venous al Phosphatase U/L Diagn ostic [facility] Lab: [address] [place] [address] Blood Norm Ast 34 U/L 10-35 Final [facility] venous al U/L Diagnostic [facility] Lab: [address] [place] [address] Blood Norm Alt 32 U/L 9-46 U/L Final [facility] venous al Diagnostic [facility] Lab: [address] [place] [address] 02/18/2021 CBC W/ Auto Blood Norm White Blood Cell 9.3 3.8- 10.8 Final [facility] Diff venous al Count thousand thousand Diagno stic /uL /uL [facility] Lab: [address] [facility] Blood Norm Red Blood Cell 4.85 4.20-5.8 Final [facility] venous al Count million/ 0 Diagnost ic uL million/ s - uL [place] Lab: [address] [facility] Blood Low Hemoglobin 10.5 13.2-17. Final Que [address] venous g/dL 1 g/dL Diagnostic [facility] Lab: [address] [facility] Blood Norm Hematocrit 39.2 % 38.5-50. Final Que st venous al 0 % Diagnostic [facility] Lab: [address] [facility] Blood Norm Mcv 80.8 fL 80.0-100 Final [facility] venous al .0 fL Diagnostic [facility] Lab: [address] [facility] Blood Low Mch 21.6 pg 27.0-33. Final [facility] venous 0 pg Diagnostic [facility] Lab: [address] [facility] Blood [facility] Mchc 26.8 32.0-36. Final [facility] venous g/dL 0 g/dL Diagnostic [facility] Lab: [address] [facility] Blood High Rdw 18.5 % 11.0-15. Final [facility] venous 0 % Diagnostic [facility] Lab: [address] [facility] Blood Norm Platelet Count 331 140-400 Final [facility] venous al thousand thousand Diagno stic /uL /uL [facility] Lab: [address] [facility] Blood Norm Mpv 11.0 fL 7.5-12.5 Final [facility] venous al fL Diagnostic [facility] Lab: [address] [facility] Blood Norm Absolute 7459 1500-780 Final [facility] venous al Neutrophils cells/uL 0 Cee gnostic cells/uL [facility] Lab: 7 [facility] Blood Low Absolute [phone] Final [facility] venous Lymphocytes cells/uL cells/uL D [facility] Lab: 7 [facility] Blood Norm Absolute 939 200-950 Final [facility] venous al Monocytes cells/uL cells/uL Cee gnostic [facility] Lab: 7 [facility] Blood Low Absolute 0 15-500 Final [facility] venous Eosinophils cells/uL cells/uL D [facility] Lab: 7 [facility] Blood Norm Absolute 56 0-200 Final [facility] venous al Basophils cells/uL cells/uL [facility] Lab: [address] [facility] Blood Norm Neutrophils 80.2 % Final Ques t venous al Diagnostic Lab: [address] [facility] Blood Norm Lymphocytes 9.1 % Final Ques t venous al Diagnostic Lab: [address] [facility] Blood Norm Monocytes 10.1 % Final [facility] venous al Diagnostic Lab: [address] [facility] Blood Norm Eosinophils 0.0 % Final Ques t venous al Diagnostic Lab: [address] [facility] Blood Norm Basophils 0.6 % Final [facility] venous al Diagnostic Lab: [address] [facility] 02/18/2021 Hepatitis C Blood Norm Hepatitis C non-reac non-parveen c Final [facility] Virus Ab, venous al Antibody tive tive Diagn ostic Serum Lab: [address] [facility] Blood Norm Index 0.00 <1.00 Final [facility] venous al Diagnostic Lab: [address] [facility] 12/29/2020 Fecal Occult Stool Occult Blood negative Christian And Blood, Stool [facility] Center: [address] 12/25/2020 Iron + TIBC Blood Low Iron, Total 14 50-180 Fi nal [facility] + Ferritin, venous mcg/dL mcg/dL Diagn ostic Serum [place] Lab: [address] [facility] Blood Norm Iron Binding 387 250-425 Final Qu est venous al Capacity mcg/dL mcg/dL Diagnost ic (calc) (calc) Lab: [address] [facility] Blood Low % Saturation 4 % 20-48 % Final Qu est venous (calc) (calc) Diagnostic Lab: [address] [facility] Blood Low Ferritin 10 NG/mL 24-380 Final [facility] venous NG/mL Diagnostic [facility] Lab: [address] [facility] 12/25/2020 Vitamin B12 Blood Norm Vitamin B12 [phone] Final [facility] + Folate, venous al pg/mL pg/mL Diagnos tic Serum or s - Blood [place] Lab: [address] [facility] Blood Norm Folate, Serum 9.6 Final Qu est venous al NG/mL Diagnostic Lab: [address] [facility] 12/25/2020 Alcohol Use Alcohol Christian And Disorders Prescreening Thania michel Identificati Questions H ealth on Test* Center: [address] Men (18-65) How 1 or Christian And Many Times in the More Arturo past Year Have He alth You Had 5 or More Center: Drinks in a Day? [address] AU1. How Often [4 L ewis And Do You Have a points] Cl ark Drink Containing 4 or Health Alcohol? more Center: times a Kristian week [address] AU2. How Many [2 Le wis And Drinks Containing points] Arturo Alcohol Do You 5 or 6 He alth Have on a Typical Center: Day When You Are Kristian Drinking? [address] AU3. How Often [4 L ewis And Do You Have 5 or points] Arturo More Drinks on Daily or Health One Occasion? almost Christel ter: daily [address] AU4. Have You [0 Le wis And Found That You points] Thania michel Were Not Able to Never Health Stop Drinking Christel ter: Once You Had Kristian Started? [address] AU5. Have You [0 Le wis And Failed to Do What points] Arturo Was Normally Never Heal th Expected from You Center: Because of Kristian Drinking? [address] AU6. Needed a [0 Le wis And 1St Drink in the points] Arturo Morning to Get Never He alth Yourself Going Ce nter: after a Heavy Nena s Drinking Session? [address] AU7. Have You [0 Le wis And Had a Feeling of points] Arturo Guilt or Remorse Never Health after Drinking? C enter: Kristian [address] AU8. Have You [0 Le wis And Been Unable to points] Thania michel Remember What Never Hea lth Happened the [facility] er: Night before Kristian Because of Your H ealth Drinking? [facility] AU9. Have You or [0 Christian And Someone Else Been points] Arturo Injured Because No H ealth of Your Drinking? Center: [address] AU10. Has a [0 Lewi s And Relative, Friend, points] Arturo Doctor, or No Health Healthcare Worker Center: Been Concerned or Kristian Suggested You Cut Health Down? [facility] Total Points 11 Navjot is And (Must Be Manually Arturo Calculated Using Health Points from Rafye r: Questions Kristian [id number] Only) He alth [facility] Guideline for 8-15 Le wis And Interpretation Points Cl ar[place] (Male) - [facility] Center: - Risky Kristian - [facility] [address] [facility] [place] Past Encounters 06/11/2021 Gastrointestinal Stromal Tumor; [facility] Hypertension; Administration of Influenza Vaccine; Active or Passive Immunization; Increased Body Mass Index Cristy Brown MD: [address] [place] [address] [place] [phone], Ph. 04/06/2021 Gastrointestinal Stromal Tumor of [place] h; Ready for Enhanced Communication Jessica Sheffield PA-C: [address] [place] [address] [place] [phone], Ph. 03/19/2021 Administration of SARS-CoV-2 Antigen Vac cine Marianna Hess, MEDICAL APPOINTMENT CLERK: [address] [place] [address] [place] [phone], Ph. 02/18/2021 Anemia; Problem Drinker; Screening for D isorder; Active or Passive Immunization Cristy Brown MD: [address] [place] [address] [place] [phone], Ph. 12/29/2020 Screening for Malignant Neoplasm of [place] n Marianna Hess, MEDICAL APPOINTMENT CLERK: [address] [place], [place] [address], [place] [phone], Ph. 12/25/2020 Anemia; Preventive Dental Procedure; Adm inistration of SARS-CoV-2 Antigen Vaccine; Active or Passive Immunization; Screening for Malignant Neoplasm of Colon; Alcohol Dependence Cristy Brown MD: [facility] [place] [phone], Ph. Social History Tobacco Smoking Status Never Smoker Vaccine List Vaccine Type COVID-19, mRNA, LNP-S, PF, 100 mcg/0.5 m L dose (Moderna) 02/18/2021 10.5 mL Plan of Care Patient Instructions Facts About Hypertension Blood pressure is the pressure of blood pushing against the roberts of your arteries. Arteries carry blood from your heart to other parts of your body. Blood pressure normally rises and falls throughout the day, but it can damage your heart and cause health problems if it stays high for a long time. Hypertension, also called high blood pressure, is blood pressure that is higher than normal. Facts About Hypertension in the [place] In 2017, the [place] [employer] and the [place] [employer] published new guidelines for hypertension management and defined high hypertension as a blood pressure at or above 130/80 mm Hg. Stage 2 hypertension is defined a s a blood pressure at or above 140/90 mm Hg. Blood Pressure Categories Blood Pressure Category Normal <120 mm Hg and <80 mm Hg Elevated 120-129 mm Hg and <80 mm Hg Hypertension Stage 1 130-139 mm Hg or 80-89 mm Hg Stage 2 e140 mm Hg or e90 mm Hg Having hypertension puts you at risk fo r heart disease and stroke, which are leading causes of in the [place].2 In 2018, nearly half a million deaths i n the [place] included hypertension as a primary or contributing cause.2 Nearly half of adults in the [place] (108 million, or 45%) have hypertension defined as a systolic blood pressure e 130 mm Hg or a diastolic blood pressure e 80 mm Hg or are taking medication for hypertension.3 Only about 1 in 4 adults (24%) with hyp ertension have their condition under control.3 About half of adults (45%) with uncontr olled hypertension have a blood pressure of 140/90 mm Hg or higher. This includes 37 million [place] adults. 3 About 30 million adults who are recomme nded to take medication may need it to be prescribed and to start taking it. Almost two out of three of this group (19 million) have a blood pressure of 140/90 mm Hg or higher.3 High blood pressure was a primary or co ntributing cause of for more than 494,873 people in the [place] in 2018.2 High blood pressure costs the [place] about $131 billion each year, averaged over 12 years from 2002 to 2014.4 Rates of High Blood Pressure Control Va ry by Sex and Race Uncontrolled high blood pressure is com mon; however, certain groups of people are more likely to have control over their high blood pressure than others. A greater percent of men (47%) have hig h blood pressure than women (43%).3 High blood pressure is more common in n on- black adults (54%) than in non- white adults (46%), non- adults (39%), or adults (36%).3 Among those recommended to take blood p ressure medication, blood pressure control is higher among non- white adults (32%) than in non- black adults (25%), non- adults (19%), or adults (25%).3 Prevent High Blood Pressure By living a healthy lifestyle, you can help keep your blood pressure in a healthy range. Preventing high blood pressure, which is also called hypertension, can lower your risk for heart disease and str anshu. Practice the following healthy bebo ng habits: Eat a Healthy Diet Choose healthy meal and snack options t o help you avoid high blood pressure and its complications. Be sure to eat plenty of fresh fruits and vegetables. Talk with your health care team about e ating a variety of foods rich in potassium, fiber, and protein and lower in salt (sodium) and saturated fat. For many people, making these healthy changes can hel p keep blood pressure low and protect ag ainst heart disease and stroke. Keep Yourself at a Healthy Weight Having overweight or obesity increases your risk for high blood pressure. To determine whether your weight is in a healthy range, doctors often calculate your body mass index (BMI). If you know your we ight and height, you can calculate your BMI at [facility] Assessing Your Weight website. Doctors sometimes also use waist and hip measurements to assess body fat. Talk with your health care team about w ays to reach a healthy weight, including choosing healthy foods and getting regular physical activity. Be Physically Active Physical activity can help keep you at a healthy weight and lower your blood pressure. The Physical Activity Guidelines for [employer] icon recommends that adults get at least 2 hours and 30 min utes of moderate-intensity exercise, suc h as brisk walking or bicycling, every week. Thats about 30 minutes a day, 5 days a week. Children and adolescents should get 1 hour of physical activity every day. Do Not Smoke Smoking raises your blood pressure and puts you at higher risk for heart attack and stroke. If you do not smoke, do not start. If you do smoke, quitting will lower your risk for heart disease. Your doctor can suggest ways to help you quit. For more information about tobacco use and quitting, see [facility] Smoking and Tobacco Use Web site. Limit How Much Alcohol You Drink Do not drink too much alcohol, which ca n raise your blood pressure. Men should have no more than 2 alcoholic drinks per day, and women should have no more than 1 alcoholic drink per day. Get Enough Sleep Getting enough sleep is important to yo ur overall health, and enough sleep is part of keeping your heart and blood vessels healthy. Not getting enough sleep on a regular basis is linked to an increased risk of heart disease, high blood press ure, and stroke. Facts About Hypertension Blood pressure is the pressure of blood pushing against the roberts of your arteries. Arteries carry blood from your heart to other parts of your body. Blood pressure normally rises and falls throughout the day, but it can damage your heart and cause health problems if it stays high for a long time. Hypertension, also called high blood pressure, is blood pressure that is higher than normal. Facts About Hypertension in the [place] In 2017, the [place] [employer] and the [place] [employer] published new guidelines for hypertension management and defined high hypertension as a blood pressure at or above 130/80 mm Hg. Stage 2 hypertension is defined a s a blood pressure at or above 140/90 mm Hg. Blood Pressure Categories Blood Pressure Category Normal <120 mm Hg and <80 mm Hg Elevated 120-129 mm Hg and <80 mm Hg Hypertension Stage 1 130-139 mm Hg or 80-89 mm Hg Stage 2 e140 mm Hg or e90 mm Hg Having hypertension puts you at risk fo r heart disease and stroke, which are leading causes of in the [place].2 In 2018, nearly half a million deaths i n the [place] included hypertension as a primary or contributing cause.2 Nearly half of adults in the [place] (108 million, or 45%) have hypertension defined as a systolic blood pressure e 130 mm Hg or a diastolic blood pressure e 80 mm Hg or are taking medication for hypertension.3 Only about 1 in 4 adults (24%) with hyp ertension have their condition under control.3 About half of adults (45%) with uncontr olled hypertension have a blood pressure of 140/90 mm Hg or higher. This includes 37 million [place] adults. 3 About 30 million adults who are recomme nded to take medication may need it to be prescribed and to start taking it. Almost two out of three of this group (19 million) have a blood pressure of 140/90 mm Hg or higher.3 High blood pressure was a primary or co ntributing cause of for more than 494,873 people in the [place] in 2018.2 High blood pressure costs the [place] about $131 billion each year, averaged over 12 years from 2002 to 2014.4 Rates of High Blood Pressure Control Va ry by Sex and Race Uncontrolled high blood pressure is com mon; however, certain groups of people are more likely to have control over their high blood pressure than others. A greater percent of men (47%) have hig h blood pressure than women (43%).3 High blood pressure is more common in n on- black adults (54%) than in non- white adults (46%), non- adults (39%), or adults (36%).3 Among those recommended to take blood p ressure medication, blood pressure control is higher among non- white adults (32%) than in non- black adults (25%), non- adults (19%), or adults (25%).3 Prevent High Blood Pressure By living a healthy lifestyle, you can help keep your blood pressure in a healthy range. Preventing high blood pressure, which is also called hypertension, can lower your risk for heart disease and str anshu. Practice the following healthy bebo ng habits: Eat a Healthy Diet Choose healthy meal and snack options t o help you avoid high blood pressure and its complications. Be sure to eat plenty of fresh fruits and vegetables. Talk with your health care team about e ating a variety of foods rich in potassium, fiber, and protein and lower in salt (sodium) and saturated fat. For many people, making these healthy changes can hel p keep blood pressure low and protect ag ainst heart disease and stroke. Keep Yourself at a Healthy Weight Having overweight or obesity increases your risk for high blood pressure. To determine whether your weight is in a healthy range, doctors often calculate your body mass index (BMI). If you know your we ight and height, you can calculate your BMI at [employer] Assessing Your Weight website. Doctors sometimes also use waist and hip measurements to assess body fat. Talk with your health care team about w ays to reach a healthy weight, including choosing healthy foods and getting regular physical activity. Be Physically Active Physical activity can help keep you at a healthy weight and lower your blood pressure. The Physical Activity Guidelines for [employer] icon recommends that adults get at least 2 hours and 30 min utes of moderate-intensity exercise, suc h as brisk walking or bicycling, every week. Thats about 30 minutes a day, 5 days a week. Children and adolescents should get 1 hour of physical activity every day. Do Not Smoke Smoking raises your blood pressure and puts you at higher risk for heart attack and stroke. If you do not smoke, do not start. If you do smoke, quitting will lower your risk for heart disease. Your doctor can suggest ways to help you quit. For more information about tobacco use and quitting, see [facility] Smoking and Tobacco Use Web site. Limit How Much Alcohol You Drink Do not drink too much alcohol, which ca n raise your blood pressure. Men should have no more than 2 alcoholic drinks per day, and women should have no more than 1 alcoholic drink per day. Get Enough Sleep Getting enough sleep is important to yo ur overall health, and enough sleep is part of keeping your heart and blood vessels healthy. Not getting enough sleep on a regular basis is linked to an increased risk of heart disease, high blood press ure, and stroke. Check your blood pressure every few day s. The [place] [employer] recommends home monitoring for all people with high blood pressure to help the healthcare provider determine whether treatments are working. Home monitoring (self-measu red blood pressure) is not a substitute for regular visits to your physician. If you have been prescribed medication to lower your blood pressure, don't stop taki ng your medication without consulting yo ur doctor, even if your blood pressure readings are in the normal range during home monitoring. You can buy a blood pressure monitor at any pharmacy or online. Arm blood pressure monitors are more accurate that wrist monitors. Finger monitors are not accurate at all. When you buy a monitor, bring it to your next appointment so we can m olivia sure it is giving accurate readings. How to monitor blood pressure: Be still. Don't smoke, drink caffeinate d beverages or exercise within 30 minutes before measuring your blood pressure. Empty your bladder and ensure at least 5 minutes of quiet rest before measurements. Sit correctly. Sit with your back strai ght and supported. Your feet should be flat on the floor and your legs should not be crossed. Your arm should be supported on a flat surface (such as a table) wit h the upper arm at heart level. Make john e the bottom of the cuff is placed directly above the bend of the elbow. Check your monitor's instructions for an illustration or have your healthcare provider show you how. Measure your blood pressure at the same time of day. It is good to measure it daily after a change in medication until it is stable and also daily for several days before an appointment. Take multiple readings and record the r esults. If your monitor has built-in memory to store your readings, take it with you to your appointments. Some monitors may also allow you to upload your reading s to a secure website after you register your profile. Don't take the measurement over clothes . A single high reading is not an immedia te cause for alarm. If you get a reading that is slightly or moderately higher than normal, take your blood pressure a few more times and consult your healthcare professional to verify if there s a [facility] concern or whether there may be any issues with your monitor. If your blood pressure readings suddenl y exceed 180/120 mm Hg, wait five minutes and test again. If your readings are still unusually high, contact your doctor immediately. You could be experiencing a hypertensive crisis. If your blood pressure is higher than 1 80/120 mm Hg and you are experiencing signs of possible organ damage such as chest pain, shortness of breath, back pain, numbness/weakness, change in vision, diff iculty speaking, do not wait to see if y our pressure comes down on its own. Call 911. It was nice to meet you today. 1. Start iron one tablet every other da y. It will turn your stool black. Absorption is improved by taking with citrus. 2. Start omeprazole one capsule daily t o protect the stomach from acid. 3. You will get a call soon for your en doscopy and colonoscopy and can set those up to make sure you don't have a malignancy and find out what has been bleeding. 4. A healthy amount of alcohol for a ma n is no more than 3 standard beers a day. Your alcohol intake may be causing palpitations and high blood pressure. You should reduce the amount or consider stopping. 5. Please make a followup appointment w ith a primary care provider here to make sure you are up to date on prevention and that your blood pressure is not needing treatment. Reminders Provider Appointments None recorded. Lab None recorded. Referral None recorded. Procedures None recorded. Surgeries None recorded. Imaging None recorded. Vitals 06/11/2021 11:20AM Office Visit 40 Height Weight BMI Blood Pressure 5 ft 10 in 203 lbs 8 oz 29.2 kg/m2 (1) 170/84 mm[H g] (2) 172/90 mm[Hg ] 04/06/2021 10:00AM New Patient Video Visit Height Weight BMI 5 ft 10 in 206 lbs 29.6 kg/m2 02/18/2021 03:40PM Office Visit Height Weight BMI Blood Pressure 5 ft 10 in 206 lbs 4 oz 29.6 kg/m2 (1) 192/87 mm[H g] (2) 186/80 mm[Hg ] (3) 160/82 mm[Hg ] 12/25/2020 08:40AM Hospital Discharge Follow Up Height Weight BMI Blood Pressure 5 ft 10 in 198 lbs 28.4 kg/m2 138/76 mm[Hg]
== END 2021-06-05 15:20 | disposition home or self-care (01) | DRG 328 ==
LOC: MEDSUR 08:59
PROVIDERS: ADMIT Surgery; ATTEND Surgery